=== PATIENT | male | born 1945 | race Caucasian/White ===

== ENCOUNTER 2019-09-05 10:18 | Day surgery (SDC) | payer MEDICARE, SELFPAY ==
[2019-09-04 18:36] VITALS: BMI 33.4
[2019-09-05] VITALS (7 sets, daily range): BP systolic 140–161; BP diastolic 90–99; PULSE 69–102; RESP 18–20; TEMP 36.3–36.9; O2SAT 94–100
--- NOTE | 2019-09-05 10:42 | ANES.PREANE2 ---
Pre-Anesthetic Assessment Pre-Anesthetic Assessment: Height/Weight: Height 1.73 m Weight 99.79 kg Temp Pulse Resp BP Pulse Ox 98.4 F 79 18 149/90 94 09/05/19 10:30 09/05/19 10:30 09/05/19 10:30 09/05/19 10:30 09/05/19 10:30 Preop Diagnosis: Symptomatic right inguinal hernia Proposed Procedure: Operation Date: 09/05/19 11:15 Proposed Procedures p Laparoscopic Inguinal Hernia Repair(Right) - Cuba Hutson MD s Open Umbilical Hernia Repair(Not Applicable) - Cuba Hutson MD Familial anesthetic complications: None Was Beta Kishor taken within 24 hours: N/A Last intake: Intake Last Liquid Date 09/04/19 Last Liquid Time 22:30 Last Solid Date 09/04/19 Last Solid Time 18:30 Social: Social History: Alcohol (3-4 beers) and No tobacco Exam: Pre-Anes Outpt Exam: alert, oriented x 3, clear to auscultation bilaterally and regular rate & rhythm Airway: Cervical ROM: WNL MP: 2 Additional comments: edentulous Pulmonary: Comments: \hx of lung mass removal on L side years ago - no residual pulmonary symptoms CV/HEM: CV/HEM: None reported : : None reported Hepatic: Hepatic: None reported GI: GI: None reported Metabolic: Metabolic: DM and Morbid obesity Musc/skel: Musc/skel: None reported Neuropsych: Neuropsych: None reported Comments: hx of prostate cancer Anesthetic Plan: ASA status: II Anesthesia: General PFSH Anesthesia PFSH: Social History Smoking and tobacco status: former smoker Quit status (tobacco): has quit using tobacco Second hand smoke exposure: No Alcohol intake: current Alcohol intake frequency: 3 or more drinks per day Alcohol type: beer Desire information about alcohol rehabilitation?: No Desire information about substance/drug rehabilitation?: No Counseling given: No Adopted: No Caregiver/support person: No Lives independently: Yes Household members: other Details: lives with son Housing: House Marital status: Single Highest education level completed: High School Graduate service: No Current occupational status: retired Current occupational exposures/hazards: No Pets and animals: No History of recent travel: No Sexually active: No Current gender identity: Male Haylee/Episcopalian: Confucianism Special haylee needs: No Agree to transfusion: No Financial difficulty paying for basics: Decline to Answer Data Anesthesia Cardiac Studies: No Data to Display
[2019-09-05] MEDS: sodium chloride 0.9% 1,000 ML 30 ML IV (10:43)
[2019-09-05 10:52] LABS: Glucose Point of Care 180 mg/dL (70-110)
--- NOTE | 2019-09-05 11:06 | PM.HPUD ---
H&P update H&P Update: DATE OF SURGERY/PROCEDURE: 09/05/19 DATE H&P PERFORMED: 08/28/19 H&P UPDATE INFORMATION: H&P completed within last 30 days and No changes to prior documentation PREOP DIAGNOSIS: Symptomatic right inguinal and Umblical hernias PLANNED PROCEDURE: Operation Date: 09/05/19 11:15 Proposed Procedures p Laparoscopic Inguinal Hernia Repair(Right) - Cuba Hutson MD s Open Umbilical Hernia Repair(Not Applicable) - Cuba Hutson MD Full H&P Medications/Allergies: Current Medications: Current Medications Generic Name Dose Route Start Last Admin Trade Name Freq PRN Reason Stop Dose Admin Sodium Chloride 1,000 mls @ 30 ml s/hr 09/05/19 10:30 09/05/19 10:43 Sodium Chloride 0.9% IV 09/06/19 10:29 30 mls/hr .Q24H MARJORIE Administration Perinent History: Medical/Surgical History: Medical History (Updated 08/28/19 @ 10:12 by Cuba Hutson MD) Diabetes (Acute) History of prostate cancer (Acute) Right groin pain (Acute) Family History: Family History (Updated 08/28/19 @ 08:24 by Cyndee Gonzalez RN) Father Diabetes Family/Other Diabetes Denies family history of Anesthesia complication Bleeding disorder Social History: Social History Smoking and tobacco status: former smoker Quit status (tobacco): has quit using tobacco Second hand smoke exposure: No Alcohol intake: current Alcohol intake frequency: 3 or more drinks per day Alcohol type: beer Desire information about alcohol rehabilitation?: No Desire information about substance/drug rehabilitation?: No Counseling given: No Adopted: No Caregiver/support person: No Lives independently: Yes Household members: other Details: lives with son Housing: House Marital status: Single Highest education level completed: High School Graduate service: No Current occupational status: retired Current occupational exposures/hazards: No Pets and animals: No History of recent travel: No Sexually active: No Current gender identity: Male Haylee/Yarsani: Buddhism Special haylee needs: No Agree to transfusion: No Financial difficulty paying for basics: Decline to Answer
[2019-09-05] MEDS: lidocaine 2% INJ 20 mL INJECTION (12:20)
--- NOTE | 2019-09-05 13:31 | P.OP_ITS ---
Operative Report Date of procedure: September 05, 2019 Pre-op Diagnosis: Symptomatic right inguinal and Umblical hernias Post-op diagnosis: same Post-op Diagnosis: Excessive scar tissue is appreciated towards the right side of the lateral Post-op Findings: Right large inguinal hernia mostly indirect component Umbilical hernia with incarcerated omentum Small left inguinal hernia Procedure Done: Laparoscopic right inguinal hernia repair with mesh placement and open primary umbilical hernia repair Implants: 3D mesh right side large Specimens removed/disposition: Large lipoma of the cord Umbilical hernial contents and sac Surgeon: Cuba Hutson Senior Oracle Adf Developer: Surgical robby Hoyos Circulating nurse Patrica Anesthesia: General (pest controller assistant is Robert and Mercedez) Estimated blood loss (mL): 10 Complications: No immediate complications Condition: stable Disposition: same day Brief History: This is a pleasant 74 years old gentleman referred to my practice for symptomatic right inguinal hernia and umbilical hernia as well, after thorough history physical examination and reviewing the chart I did field counsel the patient for laparoscopic right inguinal hernia repair with mesh placement and an open umbilical hernia repair, patient agreed to proceed accordingly. Informed consent per chart Procedure: Procedure: Transabdominal preperitoneal (TERELL) approach. Patient was identified in the holding area ,patient was transferred to the operating room where he was placed in supine position, with both arms were tucked, antibiotic was given with induction, endotracheal tube was placed per anesthesia, Torres catheter was inserted by the circulating nurse and revealed clear urine, prep and drape of the abdomen was done under the usual sterile technique as well as the scrotal area. Time-out was done verifying the patient's name/date of /planned procedure destination after the procedure, all were in agreement. SCDs confirmed to be functioning, preoperative antibiotics administered per protocol, and beta hawk protocol was confirmed. A vertical skin incision of 1.2 cm was made with 11 blade knife through the supra umbilicus , incision was carried down to the subcutaneous tissue and deepened to identify the anterior fascia, two stay sutures were applied to the fascia, and safe entrance to the abdominal cavity was achieved, a Segura trocar technique safe entry to the abdominal cavity was achieved verified by using 10 mm zero degree laparoscopy, switched to a 30 degrees scope,low flow followed by a higher flow of CO2 gas up to 15 mmHg. There was no evidence of injury to intra-abdominal structures from the port entry, attention was deviated to both groins, there was a large indirect hernia defect with herniation of peritoneum and preperitoneal fat was noted on the right side, two 5 mm ports were placed on the right and left lateral aspect of the abdomen slightly above the level of the umbilicus, under direct visualization, anesthesia 2% lidocaine local was injected at all trocar sites prior to incisions. Patient was placed in T. Kothari position The peritoneum above the level of the iliopubic tract was incised to the left of the midline and dissection was performed to create a preperitoneal space medial to lateral aspect up to anterior superior iliac spine on the right side. Dissection was continued onto the medial aspect and the right spermatic was identified, there was evidence of indirect inguinal hernia .the sac was dissected in addition to large lipoma of the cord that was excised and sent for pathology. As it applied medial to the right inferior epigastric vessels/ dissection was performed to clear the space lateral to the spermatic cord and dorsomedial to it, the hernia sac was reduced and retracted far back, so there was an evidence of a small direct inguinal hernia. Noticed to have excessive scar tissues towards the right lateral pelvic wall Then a large right 3-D mesh was rolled and placed into the abdominal cavity through the Segura port, after the mesh was introduced it was positioned to lie in the myopectineal orifice and the mesh was unrolled and this covered the entire my myope pectineal orifice. Intra-abdominal pressure was dropped to 12 mmHg to help placement of the mesh good position On the lateral aspect of the mesh extended up to the anterior superior iliac spine on the medial aspect the mesh crossed the midline onto the left side, then using absorbable tacks, placed above the iliopubic tract onto the rectus abdominis muscle on the medial aspect and also to the lateral abdominal wall superomedial to the sacroiliac spine, then the mesh was also anchored to the pubis and the Santosh's ligament inferiorly. The peritoneal leaflets were then brought together to cover the mesh and isolated from the other viscera, extra tacks were used to secure the peritoneum in good position. Final look demonstrated good hemostasis and the mesh in good position A total of 20 mL Exparel 40 ml Normal saline 20 ml bupivacaine 0.25% were injected at the remaining of the tacks site and trocar sites as well I did realize that there is a very small left inguinal hernia and clinically the patient was not symptomatic with, I do believe that the patient should lose more weight down the road and if starts to have some symptoms we can always repair it. Final look demonstrated good hemostasis, then the abdomen was desufflated while holding the peritoneum to make sure there is no herniation blue the mesh.All ports were removed. At this point attention was deviated towards the umbilical hernia, I was able to dissect it and there was a large part of incarcerated omentum that was excised and sent for pathology, at this point interrupted [id number] Vicryl sutures were applied to close the fascia under direct visualization the form of primary repair, defect was about 1 inch in diameter. All skin incisions were closed with 4-0 Monocryl subcuticular suture and Dermabond was applied. The patient tolerated the procedure well, Torres catheter was taken out ,got extubated and was transferred to the recovery area in stable condition All counts of instruments, needles and sponges were completed I was present for the whole entire procedure
--- NOTE | 2019-09-05 13:38 | SUR.PHASEI ---
[id number] PATIENT TO PACU AT THIS TIME VIA GURNEY FROM OR. RR EVEN AND UNLABORED, PLACED ON SIMPLE MASK AT 8L, SPO2 97%. PATIENT NOTED TO BE SLEEPING, RR EVEN AND UNLABORED. EYES REMAIN CLOSED. PATIENT RESPONDS TO VERBAL STIMULI.
== END 2019-09-05 15:44 | disposition home or self-care (01) ==
PROVIDERS: PCP Nurse Practitioner; Visit Provider Surgery
PROC: (CPT 49650; principal; 2019-09-05 11:15)
PROC: (CPT 49587; 2019-09-05 11:15)
DX: K40.90 Unilateral inguinal hernia, without obstruction or gangrene, not specified as recurrent (principal); K42.0 Umbilical hernia with obstruction, without gangrene; D17.6 Benign lipomatous neoplasm of spermatic cord; E11.9 Type 2 diabetes mellitus without complications; Z83.3 Family history of diabetes mellitus; Z87.891 Personal history of nicotine dependence; E66.01 Morbid (severe) obesity due to excess calories; Z68.33 Body mass index [BMI] 33.0-33.9, adult
CPT/HCPCS: 49587; 49650; 12345; 36416; 51702; 82962; 88302; 88304; C1781; C9290; J0131; J0330; J0690; J2001; J2405; J2704; J2710; J3010; J3490; J7030

== ENCOUNTER → 2020-06-04 10:58 | Outpatient (BNVA) | payer MEDICARE, SELFPAY | PROVIDERS: PCP Nurse Practitioner; Visit Provider Family Medicine | DX: N39.3 Stress incontinence (female) (male) (principal); R10.9 Unspecified abdominal pain | CPT/HCPCS: 81000 ==

== ENCOUNTER → 2020-10-07 09:33 | Outpatient (BNVA) | payer MEDICARE, SELFPAY | PROVIDERS: PCP Family Medicine; Visit Provider Family Medicine | DX: E11.9 Type 2 diabetes mellitus without complications (principal); R03.0 Elevated blood-pressure reading, without diagnosis of hypertension; Z68.32 Body mass index [BMI] 32.0-32.9, adult; F17.211 Nicotine dependence, cigarettes, in remission | CPT/HCPCS: 80053; 80061; 82043; 83036; 85025 ==

== ENCOUNTER → 2020-11-25 09:02 | Outpatient (BNVA) | payer MEDICARE, SELFPAY | PROVIDERS: PCP Family Medicine; Visit Provider Family Medicine | DX: E78.5 Hyperlipidemia, unspecified (principal); E11.9 Type 2 diabetes mellitus without complications | CPT/HCPCS: 80053 ==

== ENCOUNTER → 2021-03-31 10:56 | Outpatient (BNVA) | payer MEDICARE, SELFPAY | PROVIDERS: PCP Family Medicine; Visit Provider Family Medicine | DX: E11.9 Type 2 diabetes mellitus without complications (principal); E78.5 Hyperlipidemia, unspecified; R03.0 Elevated blood-pressure reading, without diagnosis of hypertension | CPT/HCPCS: 80053; 80061; 83036 ==

== ENCOUNTER → 2021-09-29 10:30 | Outpatient (BNVA) | payer MEDICARE, SELFPAY | PROVIDERS: PCP Family Medicine; Visit Provider Family Medicine | DX: I10 Essential (primary) hypertension (principal); E11.9 Type 2 diabetes mellitus without complications; E78.5 Hyperlipidemia, unspecified | CPT/HCPCS: 80053; 80061; 82043; 83036; 85025 ==

== ENCOUNTER → 2021-12-26 09:32 | Outpatient (BNVA) | payer MEDICARE, SELFPAY | PROVIDERS: PCP Family Medicine; Visit Provider Family Medicine | DX: I10 Essential (primary) hypertension (principal); E11.9 Type 2 diabetes mellitus without complications; E78.5 Hyperlipidemia, unspecified | CPT/HCPCS: 80053; 83036 ==

== ENCOUNTER → 2022-03-30 09:04 | Outpatient (BNVA) | payer MEDICARE, SELFPAY | PROVIDERS: PCP Family Medicine; Visit Provider Family Medicine | DX: E11.9 Type 2 diabetes mellitus without complications (principal); I10 Essential (primary) hypertension; E78.5 Hyperlipidemia, unspecified | CPT/HCPCS: 80053; 83036 ==

== ENCOUNTER → 2022-10-09 09:24 | Outpatient (BNVA) | payer MEDICARE, SELFPAY | PROVIDERS: PCP Family Medicine; Visit Provider Family Medicine | DX: I10 Essential (primary) hypertension (principal); E11.9 Type 2 diabetes mellitus without complications; E78.5 Hyperlipidemia, unspecified; R35.1 Nocturia | CPT/HCPCS: 80053; 80061; 82043; 83036; 85025 ==

== ENCOUNTER → 2023-04-09 08:53 | Outpatient (BNVA) | payer MEDICARE, SELFPAY | PROVIDERS: PCP Family Medicine; Visit Provider Family Medicine | DX: E11.9 Type 2 diabetes mellitus without complications (principal) | CPT/HCPCS: 80048; 83036 ==

== ENCOUNTER → 2023-10-08 08:17 | Outpatient (BNVA) | payer MEDICARE, SELFPAY | PROVIDERS: PCP Family Medicine; Visit Provider Family Medicine | DX: I10 Essential (primary) hypertension (principal); E11.9 Type 2 diabetes mellitus without complications | CPT/HCPCS: 80053; 80061; 82043; 83036; 85025 ==

== ENCOUNTER → 2023-12-09 13:19 | Outpatient (BNVA) | payer MEDICARE, SELFPAY | PROVIDERS: PCP Family Medicine; Visit Provider Family Medicine | DX: E11.9 Type 2 diabetes mellitus without complications (principal) | CPT/HCPCS: 80053; 83036 ==

== ENCOUNTER 2024-03-12 19:21 | Emergency (ER) | payer MEDICARE, SELFPAY ==
[2024-03-12] VITALS (9 sets, daily range): BP systolic 111–151; BP diastolic 67–97; PULSE 72–89; RESP 12–20; TEMP 36.4; O2SAT 95–100; BMI 28.5
--- NOTE | 2024-03-12 19:42 | XRR_ITS ---
PROCEDURE INFORMATION: Exam: XR Chest Exam date and time: 03/12/2024 8:01 PM Age: 78 years old Clinical indication: Other: Palpitations/hypertensive; Prior surgery; Surgery date: 6+ months; Surgery type: Left lung unspecified; Patient HX: C/O palpitations with hypertension. History of prostate cancer. TECHNIQUE: Imaging protocol: Radiologic exam of the chest. Views: 1 view. COMPARISON: No relevant prior studies available. FINDINGS: Lungs: The lungs are adequately expanded. Left basilar atelectasis versus scarring. Emphysema. Pleural spaces: Suspected small left pleural effusion. Heart/Mediastinum: Unremarkable. No cardiomegaly. Vasculature: Atherosclerotic calcifications. Bones/joints: Unremarkable. XR/XR chest 1V portable [id number] IMPRESSION: Suspected small left pleural effusion with subjacent atelectasis. Emphysema. No focal consolidations.
[2024-03-12 20:03] LABS: Basophils # 0.1 10^3/uL (0.0-0.1); Basophils % 0.7 %; Eosinophils # 0.2 10^3/uL (0.0-0.8); Eosinophils % 1.8 %; Hematocrit 48.2 % (37-53); Lymphocytes # 2.4 10^3/uL (0.8-4.8); Lymphocytes % 29.2 %; Mean Corpuscular HGB Conc 32.4 g/dL (30-55); Mean Corpuscular Hemoglobin 31.3 pg (27-33); Mean Corpuscular Volume 96.8 fl (82-101); Mean Platelet Volume 10.3 fL (7.4-10.4); Monocytes # 0.8 10^3/uL (0.2-0.9); Monocytes % 9.7 %; Neutrophils # 4.86 10^3/uL (1.8-7.7); Neutrophils % 58.2 %; Nucleated Red Blood Cells % 0 %; Platelet Count 233 10^3/cmm (157-399); Red Blood Count 4.98 10^6/uL (3.85-5.65); Red Cell Distribution Width 13.5 % (12.1-15.1); White Blood Count 8.35 10^3/uL (3.29-11.43)
--- NOTE | 2024-03-12 20:07 | ECG_ITS ---
[facility] Test Date: 2024-03-12 Pat Name: Jesús Elizondo Department: Room: Gender: Male Die Tripper: : 1945 Requested By: Dann Parish Order Number: [id number] Kaia MD: Carlin Salazar M.D. Measurements Intervals [place] Rate: 78 P: 44 NV: 160 QRS: 12 QRSD: 101 T: 74 QT: 385 QTc: 439 Interpretive Statements SINUS RHYTHM NONSPECIFIC ST & T-WAVE ABNORMALITY No previous ECG available for comparison Electronically Signed On 03-14-2024 7:40:14 CDT by Carlin Salazar M.D. [id number]
[2024-03-12 20:21] LABS: Troponin(5th) Baseline 10 ng/L (0-15)
[2024-03-12 20:31] LABS: Alanine Aminotransferase 23 U/L (0-41); Albumin Level 4.3 g/dL (3.5-5.2); Alkaline Phosphatase 90 U/L (40-130); Anion Gap 18.3 (5-19); Aspartate Amino Transferase 19 U/L (0-40); Blood Urea Nitrogen 13 mg/dL (8-23); Calcium 9.7 mg/dL (8.5-10.5); Carbon Dioxide 26 mmol/L (22-29); Chloride 102 mmol/L (98-107); Creatinine Clr Calc Pharmacy 72.9746; Globulin 2.9 g/dL (1.3-4.6); Glucose 150 mg/dL (65-115); Osmolality Calculated 297 mOsm/kg (285-295); Potassium 4.3 mmol/L (3.5-5.1); Sodium 142 mmol/L (136-145); Thyroid Stimulating Hormone 5.05 uIU/mL (0.27-4.20); Total Bilirubin 0.5 mg/dL (0.15-1.2); Total Protein 7.2 g/dL (6.6-8.7)
--- NOTE | 2024-03-12 21:42 | ECG_ITS ---
[facility] Test Date: 2024-03-12 Pat Name: Jesús Elizondo Department: Room: Gender: Male Digital Tech: : 1945 Requested By: Dann Parish Order Number: [id number] Kaia MD: Carlin Salazar M.D. Measurements Intervals [place] Rate: 78 P: 30 AR: 156 QRS: -25 QRSD: 95 T: 87 QT: 396 QTc: 451 Interpretive Statements SINUS RHYTHM INFERIOR MYOCARDIAL INFARCTION , PROBABLY OLD [40+ ms Q WAVE AND/OR ST/T ABNORMALITY IN II/aVF] Compared to ECG 03/12/2024 20:07:14 Myocardial infarct finding now present T-wave abnormality no longer present Electronically Signed On 03-14-2024 7:42:53 CDT by Carlin Salazar M.D. [id number]
[2024-03-12 22:04] LABS: Troponin 5 2HR 13.46 ng/L (0-15); Troponin 5 2HR Delta 3.46 ABS# (0-10)
[2024-03-12 22:21] LABS: Charge for UA Resulting for Rev
[2024-03-12 22:23] LABS: Bilirubin Urine Negative (Negative); Blood Urine Negative (Negative); Glucose Urine UA 3+ (Normal); Ketones Urine Trace (Negative); Leukocyte Esterase Urine Negative (Negative); Nitrate Urine Negative (Negative); Protein Urine Negative (Negative); Specific Gravity, Urine 1.022 (1.005-1.030); Urine Appearance Clear (CLEAR); Urine Color Yellow (Yellow)
[2024-03-12 22:28] LABS: Bacteria Urine None Seen /hpf; Hyaline Casts Urine 0-4 /lpf; RBC Urine 0-2 /hpf (0-2); Squamous Epithelial Cell Urine 0-5 /hpf (0-5); WBC Urine 0-5 /hpf (0-5)
--- NOTE | 2024-03-12 22:49 | W.ED.ARRPALP ---
HPI - Arrhythmia/Palpitations General: Chief Complaint: Arrhythmia/Palpitations Stated Complaint: HTN and lightheaded Time Seen by Provider: 03/12/24 19:42 History of Present Illness: 78-year-old male patient with no prior history of coronary disease. No prior history of arrhythmia. He presents with a feeling of wooziness or dizziness for the past couple of days. It is mostly positional, with turning over in bed or getting up. His blood pressure has been up somewhat at home as well. He does have a history of hypertension but was taken off of his medication last year, as his Related Data Previous Rx's Medication Instructions Recorded lancets 30 gauge (OneTouch Delica #100 ea 10/07/20 Lancets) blood-glucose meter (True Metrix #1 ea 10/30/21 Glucose Meter kit) blood sugar diagnostic (True #150 ea 09/07/23 Metrix Glucose Test Strip) empagliflozin 25 mg tablet See Rx Instructions .Route 10/10/23 (Jardiance) .COMPLEX #90 tabs metformin 500 mg tablet,extended 500 mg PO BID #180 tabs 12/10/23 release 24 hr amlodipine 5 mg tablet 5 mg PO DAILY #30 tabs 03/12/24 meclizine 25 mg tablet 25 mg PO TID PRN dizziness #60 tabs 03/12/24 Allergies Allergy/AdvReac Type Severity Reaction Status Date / Time No Known Allergies Allergy Verified 03/12/24 19:38 [facility] PFSH: Medical History Type 2 diabetes mellitus, without long-term current use of insulin Compression fracture of T7 vertebra Right groin pain Diabetes History of prostate cancer Treated by radiation. Surgical History History of inguinal hernia repair (~09/2019) History of surgery on arm History of lung surgery left Family History Father Diabetes Family/Other Diabetes Denies family history of Anesthesia complication Bleeding disorder Social History Smoking and tobacco/nicotine status: former use of tobacco/nicotine Quit status (tobacco/nicotine): has quit using Second hand smoke exposure: No Alcohol intake: current Alcohol intake frequency: 3 or more drinks per day Alcohol type: beer Substance/Drug Use: never Adopted: No Caregiver/support person: No Lives independently: Yes Household members: other Details: lives with son Housing: House Marital status: Single Highest education level completed: High School Graduate service: No Current occupational status: retired Current occupational exposures/hazards: No Pets and animals: No Sexually active: No Do you think of yourself as: Straight/Heterosexual Current gender identity: Male Haylee/Hinduism: Yarsani Special haylee needs: No Agree to transfusion: No Physical Exam Const: COMMON NORMALS: no acute distress, patient oriented x3 and alert GENERAL APPEARANCE: cooperative; not ill appearing and not frail appearing HENMT: COMMON NORMALS: normocephalic, atraumatic and Normal external nose present HEAD & SCALP: normocephalic and atraumatic FACE & SINUS: normal facial exam and face symmetric NOSE: Normal external nose present Eye: COMMON NORMALS: Equal, round and reactive pupils present and EOMs intact bilaterally PUPIL: Yes Equal, round and reactive pupils present Neck/C-Spine: GENERAL: Yes trachea midline Chest: CHEST: Yes Symmetrical chest wall rise Resp: COMMON NORMALS: normal respiratory effort, No retractions, No use of accessory muscles and clear to auscultation bilaterally AUSCULTATION: clear to auscultation bilaterally Cardio: COMMON NORMALS: regular rate and regular rhythm RATE: regular rate RHYTHM: regular rhythm GI: COMMON NORMALS: Normal to inspection, nondistended, normoactive bowel sounds present Extremity: COMMON NORMALS: no pedal edema Neuro: LAURA COMA SCALE: document GCS findings [place] coma scale eye opening: Spontaneous Laura coma scale verbal response: Orientated Laura coma scale motor response: Obey commands [place] coma scale total score: 15 COMMON NORMALS: patient oriented x3 SENSORIUM/ORIENTATION: Yes alert CRANIAL NERVES: Yes CN normal except as noted COORDINATION/BALANCE: [id number]-ar-[id number] test normal and bgqm-ul-aopg test normal SPEECH: speech normal GAIT: Yes Normal gait present, No Antalgic gait present and No Ataxic gait present SENSORY EXAM: Yes extremities (intact) MOTOR EXAM: Pronator motor function not present and Normal motor muscle tone present throughout COORDINATION: bgjdwa-rb-qrtj test normal and wepq-ej-cqoy test normal Psych: COMMON NORMALS: speech normal SPEECH: Yes normal speech Skin: COMMON NORMALS: no rashes or lesions noted GENERAL SKIN EXAM: no rashes or lesions noted Course Vital Signs: Vital signs: Vital Signs Temperature 97.6 F 03/12/24 23:33 Pulse Rate 89 03/12/24 23:33 Respiratory Rate 18 03/12/24 23:33 Blood Pressure 127/85 03/12/24 23:33 Pulse Oximetry 96 03/12/24 23:33 Oxygen Delivery Me thod Room Air 03/12/24 23:30 MDM - Arrhythmia/Palpitations Medical Decision Making The patient has ambulated in the emergency room without dizziness. He has no neurological deficits. His gait is not ataxic. Vitals are stable. CBC is normal. BMP is not remarkable. Chest x-ray shows potentially a tiny left pleural effusion and is otherwise not remarkable. Urinalysis is negative. Troponin remain normal at 2 hours. TSH is minimally elevated. He is asymptomatic currently. He is asked to monitor his blood pressure twice daily for the next several days. Report numbers to his doctor. He may treat hypertension that is significant with amlodipine if needed. He will return for any worsening symptoms. Lab Data 03/12/24 19:54 03/12/24 19:54 Radiology Impressions Chest X-Ray 03/12/24 19:42 IMPRESSION: Suspected small left pleural effusion with subjacent atelectasis. Emphysema. No focal consolidations. Laboratory Results WBC 8.35 10^3/uL (3.29-11.43) 03/12/24 19:54 RBC 4.98 10^6/uL (3.85-5.65) 03/12/24 19:54 Hgb 15.60 g/dL (11.27-16.99) 03/12/24 19:54 Hct 48.2 % (37-53) 03/12/24 19:54 MCV 96.8 fl (82-101) 03/12/24 19:54 MCH 31.3 pg (27-33) 03/12/24 19:54 MCHC 32.4 g/dL (30-55) 03/12/24 19:54 RDW 13.5 % (12.1-15.1) 03/12/24 19:54 Plt Count 233 10^3/cmm (157-399) 03/12/24 19:54 MPV 10.3 fL (7.4-10.4) 03/12/24 19:54 Neut % (Auto) 58.2 % 03/12/24 19:54 Lymph % (Auto) 29.2 % 03/12/24 19:54 Morgan % (Auto) 9.7 % 03/12/24 19:54 Eos % (Auto) 1.8 % 03/12/24 19:54 Baso % (Auto) 0.7 % 03/12/24 19:54 Neut # (Auto) 4.86 10^3/uL (1.8-7.7) 03/12/24 19:54 Lymph # (Auto) 2.4 10^3/uL (0.8-4.8) 03/12/24 19:54 Morgan # (Auto) 0.8 10^3/uL (0.2-0.9) 03/12/24 19:54 Eos # (Auto) 0.2 10^3/uL (0.0-0.8) 03/12/24 19:54 Baso # (Auto) 0.1 10^3/uL (0.0-0.1) 03/12/24 19:54 Nucleated RBC % (auto) 0 % 03/12/24 19:54 Nucleated RBCs # 0.0 /100WBC 03/12/24 19:54 Sodium 142 mmol/L (136-145) 03/12/24 19:54 Potassium 4.3 mmol/L (3.5-5.1) 03/12/24 19:54 Chloride 102 mmol/L (98-107) 03/12/24 19:54 Carbon Dioxide 26 mmol/L (22-29) 03/12/24 19:54 Anion Gap 18.3 (5-19) 03/12/24 19:54 BUN 13 mg/dL (8-23) 03/12/24 19:54 Creatinine 0.9 mg/dL (0.7-1.2) 03/12/24 19:54 GFR Calculation Not Reportable 03/12/24 19:54 Glucose 150 mg/dL (65-115) H 03/12/24 19:54 Calculated Osmolality 297 mOsm/kg (285-295) H 03/12/24 19:54 Calcium 9.7 mg/dL (8.5-10.5) 03/12/24 19:54 Magnesium 2.0 mg/dL (1.7-2.3) 03/12/24 19:54 Total Bilirubin 0.5 mg/dL (0.15-1.2) 03/12/24 19:54 AST 19 U/L (0-40) 03/12/24 19:54 ALT 23 U/L (0-41) 03/12/24 19:54 Alkaline Phosphatase 90 U/L (40-130) 03/12/24 19:54 Troponin T Baseline 10 ng/L (0-15) 03/12/24 19:54 Troponin T 120 Minute 13.46 ng/L (0-15) 03/12/24 21:21 Delta Troponin T 3.46 ABS# (0-10) 03/12/24 21:21 Total Protein 7.2 g/dL (6.6-8.7) 03/12/24 19:54 Albumin 4.3 g/dL (3.5-5.2) 03/12/24 19:54 Globulin 2.9 g/dL (1.3-4.6) 03/12/24 19:54 TSH 5.05 uIU/mL (0.27-4.20) H 03/12/24 19:54 Urine Color Yellow (Yellow) 03/12/24 22:18 Urine Appearance Clear (CLEAR) 03/12/24 22:18 Urine pH 8.0 (5-7) A 03/12/24 22:18 Ur Specific [place] 1.022 (1.005-1.030) 03/12/24 22:18 Urine Protein Negative (Negative) 03/12/24 22:18 Urine Glucose (UA) 3+ (Normal) H 03/12/24 22:18 Urine Ketones Trace (Negative) 03/12/24 22:18 Urine Blood Negative (Negative) 03/12/24 22:18 Urine Nitrate Negative (Negative) 03/12/24 22:18 Urine Bilirubin Negative (Negative) 03/12/24 22:18 Urine Urobilinogen 1.0 mg/dL (Negative) 03/12/24 22:18 Ur Leukocyte Esterase Negative (Negative) 03/12/24 22:18 Urine RBC 0-2 /hpf (0-2) 03/12/24 22:18 Urine WBC 0-5 /hpf (0-5) 03/12/24 22:18 Ur Squamous Epith Cells 0-5 /hpf (0-5) 03/12/24 22:18 Amorphous Sediment Not Reportable 03/12/24 22:18 Urine Bacteria None seen /hpf (NONE) 03/12/24 22:18 Hyaline Casts 0-4 /lpf H 03/12/24 22:18 All radiology interpretation(s) finalized by discharge Discharge Plan Discharge Patient Disposition: Home Clinical Impression: Dizziness Condition: Stable Prescriptions: New meclizine 25 mg tablet 25 mg PO TID PRN (Reason: dizziness) Qty: 60 0RF amlodipine 5 mg tablet 5 mg PO DAILY Qty: 30 0RF No Action (DME) lancets [OneTouch Delica Lancets] 30 gauge misc See Rx Instructions .ROUTE .MEDSUPPLY Qty: 100 3RF Rx Instructions: two daily (DME) blood-glucose meter [True Metrix Glucose Meter] Kit See Rx Instructions .Route Qty: 1 0RF Rx Instructions: As directed (DME) True Metrix Glucose Test Strip Strip See Rx Instructions .ROUTE .MEDSUPPLY Qty: 150 3RF Rx Instructions: twice daily Jardiance 25 mg tablet See Rx Instructions .ROUTE .COMPLEX Qty: 90 1RF Dose Instruction: TAKE 1 TABLET BY MOUTH ONCE DAILY IN THE MORNING Rx Instructions: TAKE 1 TABLET BY MOUTH ONCE DAILY IN THE MORNING metformin 500 mg tablet extended release 24 hr 500 mg PO BID Qty: 180 1RF Rx Instructions: Dose change Discharge Orders: Discharge ED (Routine); Ordered 03/12/24 Ordered By: Dann Garay Patient Instructions: Dizziness (ED), Opioid Safety, Pain Management Activity Restrictions/Additional Instructions: Check your blood pressure twice daily for the next 3 to 5 days. Blood pressure remains greater than 145 systolic (the top number), you may take the amlodipine you were prescribed. You may take the meclizine as needed for dizziness. Call your doctor on Wednesday, for follow-up. Return for worsening dizziness despite treatment, chest discomfort, shortness of breath, any other concerning symptoms. Coding Level of Care Code ED Photograph Retoucher for Davis Singh
== END 2024-03-12 23:35 | disposition home or self-care (01) ==
PROVIDERS: Emergency Provider Emergency Medicine
DX: R42 Dizziness and giddiness (principal); Z79.84 Long term (current) use of oral hypoglycemic drugs; Z87.891 Personal history of nicotine dependence; E11.9 Type 2 diabetes mellitus without complications; Z85.46 Personal history of malignant neoplasm of prostate; Z92.3 Personal history of irradiation
CPT/HCPCS: 36415; 71045; 80053; 81003; 81015; 83735; 84443; 84484; 85025; 93005; 99285

== ENCOUNTER → 2024-03-28 09:54 | Outpatient (BNVA) | payer MEDICARE, SELFPAY | DX: I10 Essential (primary) hypertension (principal); E11.9 Type 2 diabetes mellitus without complications; E78.5 Hyperlipidemia, unspecified | CPT/HCPCS: 80061; 83036 ==

== ENCOUNTER → 2024-06-15 09:13 | Outpatient (BNVA) | payer MEDICARE, SELFPAY | DX: Z85.46 Personal history of malignant neoplasm of prostate (principal); E11.9 Type 2 diabetes mellitus without complications | CPT/HCPCS: 80053; 83036; 84153; 85025 ==

== ENCOUNTER → 2024-12-18 09:21 | Outpatient (BNVA) | payer MEDICARE, SELFPAY | DX: E11.9 Type 2 diabetes mellitus without complications (principal); E78.5 Hyperlipidemia, unspecified; I10 Essential (primary) hypertension | CPT/HCPCS: 80053; 80061; 83036 ==

== ENCOUNTER → 2025-06-20 08:26 | Outpatient (BNVA) | payer MEDICARE, SELFPAY | DX: Z12.5 Encounter for screening for malignant neoplasm of prostate (principal); Z85.46 Personal history of malignant neoplasm of prostate; E11.9 Type 2 diabetes mellitus without complications; E78.5 Hyperlipidemia, unspecified | CPT/HCPCS: 80053; 80061; 83036; 85025; G0103 ==

== ENCOUNTER → 2025-07-04 13:01 | Outpatient (BNVA) | payer MEDICARE, SELFPAY | DX: I10 Essential (primary) hypertension (principal) | CPT/HCPCS: 84132 ==